=== PATIENT | female | born 1995 | race Caucasian/White ===

== ENCOUNTER 2017-10-05 14:48 | Emergency (ER) | payer BC ==
[~2017-10-05] VITALS: Ht 157.5 cm; Wt 56.8 kg
[2017-10-05 14:57] VITALS: BP 129/79; TEMP 98.7
[2017-10-05] MEDS ORDERED: KURVELO PO (15:01)
[2017-10-05 16:31] VITALS: PULSE 86
== END 2017-10-05 16:32 | disposition home or self-care (01) ==
LOC: COL.ER 14:48
DX: G43.909 Migraine, unspecified, not intractable, without status migrainosus (principal); Z32.02 Encounter for pregnancy test, result negative
CPT/HCPCS: J1200; J2765